=== PATIENT | male | born 1960 | race Caucasian/White ===

== ENCOUNTER 2016-06-30 07:50 | Emergency (ER) ==
[2016-06-30 08:00] VITALS: BP 110/72
[2016-06-30] MEDS ORDERED: XYLOCAINE-MPF 1% INJ ONE (09:17)
--- NOTE | 2016-06-30 09:22 | PROVIDER DOCUMENTATION ---
HPI-Rash/Wound/ReCheck - General Chief Complaint: Laceration[s] Stated Complaint: LAC TO FINGER Time Seen by Provider: 06/30/16 09:08 Source: patient Allergies/Adverse Reactions: Allergies Allergy/AdvReac Type Severity Reaction Status Date / Time acetaminophen AdvReac Unknown Verified 06/30/16 09:19 [From Lorcet (hydrocodone)] hydrocodone bitartrate * AdvReac Unknown Verified 06/30/16 09:19 [From Lorcet (hydrocodone)] Home Medications: Home Medication List Medication Instructions Recorded Confirmed Last Taken Type Lisinopril 20 mg PO DAILY 01/21/12 10/16/15 10/16/15 09:00 History Chromium Picolinate 400 mcg PO DAILY 10/16/15 10/16/15 10/15/15 21:00 History 400 Clopidogrel Bisulfate [Plavix] 75 mg PO DAILY 10/16/15 10/16/15 10/15/15 21:00 History 75mg Multivitamin [Daily Value] 1 each PO DAILY 10/16/15 10/16/15 10/15/15 21:00 History 1 Omeprazole [Prilosec] 20 mg PO DAILY 10/16/15 10/16/15 10/15/15 21:00 History Pravastatin Sodium 20 mg PO DAILY 10/16/15 10/16/15 10/15/15 21:00 History 20 Saxagliptin HCl/Metformin HCl 1 tab PO DAILY 10/16/15 10/16/15 10/15/15 20:00 History [Kombiglyze Xr 5-1,000 mg Tab] 1 Sulfamethoxazole/Trimethoprim 1 each PO BID #10 tablet 06/30/16 Unknown Rx [Bactrim Ds Tablet] - History of Present Illness-Dermatology Nature of Presenting Problem: 56 y/o WM c/o lac to L index finger x 1 hour. 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 States took time and pressure to get wound to stop bleeding. Reports pain 04/27. Denies numbness/tingling. Tetanus UTD- 2010. Review of Systems - Adult - REVIEW OF SYSTEMS - ADULT Constitutional: reports: no symptoms reported. denies: chills, fever Eyes: reports: no symptoms reported. denies: blurred vision, double vision Ears, Nose, Mouth & Throat: reports: no symptoms reported. denies: ear pain, nose pain Cardiovascular: reports: no symptoms reported. denies: chest pain, palpitations Respiratory: reports: no symptoms reported. denies: dyspnea on exertion, shortness of breath Gastrointestinal: reports: no symptoms reported. denies: nausea, vomiting Genitourinary: reports: no symptoms reported. denies: dysuria, frequency Musculoskeletal: reports: no symptoms reported. denies: joint pain, joint swelling Integumentary: reports: see HPI. denies: itching, rash Neurological: reports: no symptoms reported. denies: numbness, paresthesia Psychiatric: reports: no symptoms reported Endocrine: reports: no symptoms reported. denies: cold intolerance, heat intolerance Hematologic/Lymphatic: reports: no symptoms reported. denies: easy bruising, prolonged bleeding Allergic/Immunologic: reports: no symptoms reported All Other Systems: Reviewed and Negative Past History - Adult - PAST MEDICAL HISTORY-ADULT Review of Records: reports: Old Records Reviewed, Nursing Assessment Review, Medications Reviewed Major Childhood Illnesses: reports: denies history - SOCIAL HISTORY Smoking: quit greater than 1 year Physical Exam-General - PHYSICAL EXAM-ADULT Initial Vital Signs Reviewed: Yes - CONSTITUTIONAL General Appearance: alert, no apparent distress - EYES Eyes: pink conjunctivae - HEAD, EARS, NOSE, MOUTH & THROAT HENMT: normocephalic/atraumatic - NECK Neck: normal inspection - RESPIRATORY Respiratory: no respiratory distress - CARDIOVASCULAR Cardiovascular: normal peripheral pulses, regular rate, rhythm - MUSCULOSKELETAL Back Exam: normal inspection Extremity: normal range of motion, normal gait, normal capillary refill. negative: abnormal NV exam, deformity, pulse deficit Peripheral Pulses: radial (R): 2+, radial (L): 2+ - SKIN Integumentary: normal color, normal turgor, warm/dry, laceration(s) (1 cm to lateral aspect of L index finger at PIP) - NEUROLOGIC Neurologic: negative: aphasia - PSYCHIATRIC Psych/Mental Status: normal mood/affect, normal thought content, normal thought process, oriented x 3 Procedures - LACERATION/WOUND REPAIR/FB Left Finger Wound Length: 1 cm Wound's Depth, Shape: linear Wound Explored/Foreign Body: clean, no foreign body found Irrigated with Saline?: Yes Prepped with: Chlorhexidine, Kit Utilized, Sterile Drapes Applied Anesthetic: 1%, Lidocaine/Xylocaine Volume of Anesthetic (ml's): 5 (MC block) Wound Repaired with: Sutures Suture Size/Type: 4.0, Non-Absorbable Number of Sutures: 2 Layer Closure?: No Sterile Dressing Applied?: Yes Splint Applied?: No Sling Applied?: No Post Procedure Neurovascular Exam: Intact Procedure Comment: Pt tolerated well Departure - Departure Time of Disposition Order: 09:18 DIAGNOSIS: Laceration Disposition: HOME 01 Certified Medical Emergency: Emergent Condition: Stable Additional Instructions: Take medications as directed. Motrin for pain. Keep wound clean and dry. Return in 10-14 days for suture removal. ED Follow Up Instructions: You have been treated by a care provider in the Emergency Department. These instructions are being provided to you so you can have an understanding of how to care for yourself upon discharge. Upon discharge from the Emergency Department, you are responsible for making arrangements for follow-up care by a physician of your choice. Take all prescribed medications as directed. Return to the Emergency Department immediately for any new or worsening symptoms. You may call the Physician Referral phone number at [phone] to obtain a list of Physicians who are taking new patients. Prescriptions: Sulfamethoxazole/Trimethoprim [Bactrim Ds Tablet] 1 each PO BID #10 tablet Referrals: Adelfo Mae MD [Primary Care Provider] - Instructions: Laceration Care, Adult, Qcys-my-Eaxs Attestation - Physician/ JORDYN Attestation Patient care was provided by Advanced Practice Provider:: Yes Advanced Practice Provider:: Lupe Escalera Advanced Practice Provider documentation review:: The Mid-level provider documentation, treatment plan and medical decision making was reviewed by the physician who agrees with all treatment and medical decision making by the MLP.
== END 2016-06-30 10:24 | disposition home or self-care (01) ==
LOC: ED 07:50
DX: S61.211A Laceration without foreign body of left index finger without damage to nail, initial encounter (principal); W26.0XXA Contact with knife, initial encounter; Z87.891 Personal history of nicotine dependence; Z79.899 Other long term (current) drug therapy
CPT/HCPCS: 99282